=== PATIENT | male | born 2005 | race Two or more races ===

== ENCOUNTER 2025-01-09 03:27 | Emergency (ER) | payer MEDICAID, SELFPAY ==
[2025-01-09 03:28] VITALS: BMI 18.8
[2025-01-09 03:41] VITALS: BP 120/67; PULSE 66; RESP 17; TEMP 36.7; O2SAT 100
[2025-01-09 03:54] VITALS: BP 118/66; PULSE 63; RESP 15; O2SAT 98
--- NOTE | 2025-01-09 03:56 | EDNOTE_ITS ---
ED Male Genitalurinary RME/HPI General Chief complaint: Abdominal Pain Stated complaint: L FLANK PAIN Time Seen by Provider: 01/09/25 03:52 Arrival date/time: 01/09/25 03:27 RME / HPI RME / HPI Narrative: DR. PAULSON MAIN ED EVALUATION: 19 y/o male presents to ED c/o left flank and LLQ abdominal pain with vomiting x 9 hours. Patient states pain is constant, but severity increases and decreases. Denies history of kidney stones. No other concerns or complaints expressed at this time. Related Data Previous Rx's ?Medication ?Instructions ?Recorded ibuprofen 400 mg tablet 400 mg PO QID PRN pain #20 t abs 06/15/18 hydrocodone 10 mg-acetaminophen 1 tab PO Q6H PRN pain #30 tabs 01/09/25 325 mg tablet ibuprofen 600 mg tablet 600 mg PO Q6H PRN pain #30 t abs 01/09/25 tamsulosin 0.4 mg capsule (Flomax) 0.4 mg PO QDAY #7 c aps 01/09/25 Allergies Allergy/AdvReac Type Severity Reaction Status Date / Time No Known Allergies Allergy Verified 06/14/18 21:09 Review of Systems Review of Systems Systems Reviewed: All systems reviewed, normal except as documented Past Medical History Past Medical History RESPIRATORY: Positive Asthma ED Exam Narrative Physical exam: Generally patient is alert in mild distress secondary to pain heart regular rate and rhythm lungs clear to auscultation equal bilaterally abdomen soft bowel sounds present nondistended left lateral mid abdominal tenderness without rebound. Musculoskeletal examination of the patient mild costovertebral angle tenderness. Course Quality Measures none Orders Category Date Time Status Insert IV NOW Care 01/09/25 03:[address] abdomen pelvis wo con Stat Exams 01/09/25 03:56 Taken CBC Stat Lab 01/09/25 04:20 Completed CMP [Comprehensive Metabolic Panel] Stat Lab 01/09/25 04:20 Completed UA [Urinalysis] Stat Lab 01/09/25 04:39 Completed Ketorolac Inj [Toradol Inj] Med 01/09/25 03:56 Discontinued 30 mg IVP X1 ONE Ketorolac Inj [Toradol Inj] Med 01/09/25 03:56 Discontinued 30 mg IVP X1 ONE Morphine Inj Med 01/09/25 04:48 Discontinued 4 mg IVP X1 ONE Ondansetron Inj [Zofran Inj] Med 01/09/25 03:56 Discontinued 4 mg IVP X1 ONE Ondansetron Inj [Zofran Inj] Med 01/09/25 03:56 Discontinued 4 mg IVP X1 ONE Vital Signs Vital signs: Vital Signs Temperature 98.0 F 01/09/25 03:41 Pulse Rate 66 01/09/25 03:41 Respiratory Rate 17 01/09/25 03:41 Blood Pressure 120/67 01/09/25 03:41 Pulse Oximetry (%) 100 01/09/25 03:41 Oxygen Delivery Method Room Air 01/09/25 03:41 Urogenital - Male MDM Narrative MDM Narrative:: Scribe Attestation: I, Leesa Vasquez, am scribing for and in the presence of Dr. Paulson. Provider Notation: Although this document has been carefully reviewed, there may still be some phonetic and other typographical errors.? These errors are purely grammatical due to imperfections in the software program and should not be construed in any way to? compromise the substance of the patient's medical care during this visit. Clinically this patient has a kidney stone. There is microscopic hematuria. No elevation in white blood cell count in the urine and no bacteria seen. White count systemically is 13,000. CT scan done of the abdomen and pelvis without contrast is pending reading by the radiologist however it does show moderate left-sided hydronephrosis and approximately 3 mm left mid ureteral stone. Patient was pain-free after being given Toradol 30 mg IV and 4 mg of morphine IV as well as Zofran 4 mg IV. Patient will be discharged on Flomax and ibuprofen and [place] to be taken as prescribed. Follow-up with his doctor. Return to ER as needed or if condition worsens such as a fever develops. There is no evidence of infection at this time. Patient data External records reviewed:: [facility] previous records (No recent ED records available for review.) Clinical information provided by:: patient Social determinants that could affect healthcare access:: none Patient has the following chronic illnesses:: Asthma How is presenting disease/condition affected by chronic disease/condition?: uneffected by Evaluation data The following diagnostics were reviewed and interpreted by me:: lab results and radiology exam(s) Lab and/or radiology exams considered but not ordered:: None Interpretation Summary: RADIOLOGY Abdomen/Pelvis CT: Pending official radiology report. Medications / Prescriptions Medications or Prescriptions considered but not ordered:: None Medication administrations:: Medication Administration History Discontinued Medications Ketorolac Tromethamine (Ketorolac Inj 30 Mg/Ml Vial) 30 mg IVP X1 ONE Stop: 01/09/25 03:57 Last Admin: 01/09/25 04:03 Dose: Not Given Documented By: ANASTACIO Non-Admin Reason: Duplicate Medication on eMAR Ketorolac Tromethamine (Ketorolac Inj 30 Mg/Ml Vial) 30 mg IVP X1 ONE Stop: 01/09/25 03:57 Last Admin: 01/09/25 04:03 Dose: 30 mg Documented By: ANASTACIO Morphine Sulfate (Morphine Sulf Inj 10 Mg/Ml Vial) 4 mg IVP X1 ONE Stop: 01/09/25 04:49 Last Admin: 01/09/25 05:02 Dose: 4 mg Documented By: ANASTACIO Ondansetron HCl (Ondansetron Inj 2 Mg/Ml Inj 2 Ml) 4 mg IVP X1 ONE; Protocol Stop: 01/09/25 03:57 Last Admin: 01/09/25 03:59 Dose: Not Given Documented By: ANASTACIO Non-Admin Reason: Duplicate Medication on eMAR Ondansetron HCl (Ondansetron Inj 2 Mg/Ml Inj 2 Ml) 4 mg IVP X1 ONE; Protocol Stop: 01/09/25 03:57 Last Admin: 01/09/25 04:02 Dose: 4 mg Documented By: ANASTACIO See above Consultations Consultation(s) initiated? (list below): No Diagnosis Urogenital Male Differential Diagnosis: urinary tract infection, urethritis, acute retention of urine, inguinal hernia and other (Renal calculi) Most likely diagnosis given after review of the tests above:: None Admission Indicated Admission indicated?: not indicated Explain why admission is indicated or not indicated:: Patient does not meet admission criteria. Admission Request Was there a request for admission?: No Disposition Plan Disposition Plan: Discharge Discharge Attestation Discharge Attestation: The patient and all family members were given an opportunity to ask questions and understood the discharge instructions. Discharge instructions specifically effects, indications for sooner follow up or return to the emergency department, and the expected course of current diagnosis. Patient condition: Stable Discharge Plan Plan Patient Disposition: HOME (Self Care) Prescriptions/Referrals Prescriptions/Med Rec: New tamsulosin [Flomax] 0.4 mg capsule 0.4 mg PO QDAY Qty: 7 0RF ibuprofen 600 mg tablet 600 mg PO Q6H PRN (Reason: pain) Qty: 30 0RF hydrocodone-acetaminophen 10-325 mg tablet 1 tab PO Q6H MDD 4 PRN (Reason: pain) Qty: 30 0RF No Action ibuprofen 400 mg tablet 400 mg PO QID PRN (Reason: pain) Qty: 20 0RF Problem List Clinical Impression: Kidney stone Patient/Caregiver Discharge Instructions Print Language: Malawian Stand Alone Forms: [facility] Award Info., Patient Portal Info Letter
--- NOTE | 2025-01-09 03:56 | XR_ITS ---
Examination: CT abdomen and pelvis without contrast. Coronal 3-D reconstructions. Sagittal 2-D reconstructions. Date and time of exam:January 09, 2025, 0416 hours INDICATION: Onset left flank pain beginning 9 hours ago CTDI: vol (mGy): 4.13 DLP: (mGycm): . 222. Technique: Axial images of the abdomen have been obtained, 3 mm slice thickness Intravenous contrast material has not been administered. Low dose protocols were performed. One or more of the following dose reduction techniques were used; automated exposure control, adjustment of the mA and/or KV according to patient size, use of iterative reconstruction technique. Findings: No focal liver or splenic lesion No gallstones No pancreatic or adrenal mass Mild left hydronephrosis 4 mm proximal left ureteral calculus Aorta normal size. No bowel obstruction Normal appendix No bladder mass or bladder calculi Intact osseous structures mild disc narrowing L5-S1 IMPRESSION: Mild left hydronephrosis secondary to a 4 mm proximal left ureteral calculus
[2025-01-09] MEDS: ONDANSETRON INJ 2 MG/ML INJ 2 ML 4 MG IVP (04:02)
[2025-01-09] MEDS: KETOROLAC INJ 30 MG/ML VIAL IVP (04:03)
--- NOTE | 2025-01-09 04:03 | PC.NURSE ---
PT ARRIVED TO ED WITH [facility] FOR WORSEING LEFT SIDE FLANK PAIN. PAIN STARTED 01/08/2025 AROUND 1999 AND STARTED TO GET WORSE. PT STATES HE TOOK NAPROXEN WITH NO IMPROVEMENT
[2025-01-09 04:41] LABS: Basophils # (Auto) 0.1 Thou/mm3 (0.0-0.2); Basophils % (Auto) 0 % (0-2.5); Eosinophils # (Auto) 0.1 Thou/mm3 (0.0-0.5); Eosinophils % (Auto) 0 % (0-10); Hematocrit 45.5 % (41.0-53.0); Hemoglobin 16.1 g/dL (13.5-16.0); Immature Granulocytes Auto 0.05 Thou/mm3 (0.00-0.00); Lymphocytes # (Auto) 1.9 Thou/mm3 (1.0-4.8); Lymphocytes % (Auto) 13 % (10-50); Mean Corpuscular HGB Conc 35.4 g/dl (31.0-37.0); Mean Corpuscular Hemoglobin 31.2 pg (25.0-35.0); Mean Corpuscular Volume 88 fL (80-100); Monocytes # (Auto) 0.6 Thou/mm3 (0.0-0.8); Monocytes % (Auto) 5 % (0-12); Neutrophils # (Auto) 11.3 Thou/mm3 (1.8-7.7); Neutrophils % (Auto) 81 % (37-80); Nucleated Red Blood Cell # 0.00 Thou/mm3 (0.00-0.00); Nucleated Red Blood Cell % 0 /100 WBC (0); Platelet Count 362 Thou/mm3 (140-440); RDW Standard Deviation 38.8 fL (35.1-43.9); Red Blood Count 5.16 Miln/mm3 (4.50-5.90); White Blood Count 13.9 Thou/mm3 (4.5-11.0)
[2025-01-09 04:48] LABS: Collection Type, Urine Voided; Squamous Epithelial Cell,Urine 0 /hpf (0-5)
[2025-01-09 04:53] LABS: Bilirubin,Urine Negative (Negative); Blood,Urine 3+ (Negative); Clarity,Urine Turbid (Clear/Hazy); Color,Urine Yellow (Lt Yel-Yel); Glucose, Urine Negative (Negative); Ketones,Urine 1+ (Negative); Leukocyte Esterase,Urine Negative (Negative); Nitrite,Urine Negative (Negative); PH,Urine 6.5 (5.0-7.0); Protein,Urine 1+ (Neg - Trace); RBC,Urine 3489 /hpf (0-3); Specific Gravity,Urine 1.033 (1.001-1.035); Urobilinogen,Urine 2.0 mg/dL (0.0-1.0); WBC,Urine 14 /hpf (0-5)
[2025-01-09 04:59] LABS: Alanine Aminotransferase 12 U/L (10-49); Albumin, Serum 5.0 gm/dL (3.5-5.0); Albumin/Globulin Ratio 2.3 (1.2-2.2); Alkaline Phosphatase 108 U/L (46-116); Anion Gap 13 (7-16); Aspartate Amino Transferase 20 U/L (0-34); BUN/Creatinine Ratio 6 Ratio (12-20); Bilirubin,Total 0.8 mg/dL (0.3-1.2); Blood Urea Nitrogen 6 mg/dL (9-23); Calcium 10.0 mg/dL (8.3-10.6); Calcium (Corrected) 10.0 mg/dL (8.5-10.1); Carbon Dioxide 22.5 mMol/L (20.0-31.0); Chloride 108 mMol/L (98-107); Creatinine (Component) 1.0 mg/dL (0.6-1.3); Estimated Creatinine Clearance 90.7 mL/min (>60); Globulin 2.2 gm/dL (2.3-3.5); Glucose 99 mg/dL (74-106); Osmolality,Calculated 282 (275-295); Potassium 3.4 mMol/L (3.4-5.1); Sodium 143 mMol/L (136-145); Total Protein 7.2 gm/dL (5.7-8.2); eGFR > 60 See Note
[2025-01-09] MEDS: MORPHINE SULF INJ 10 MG/ML VIAL 4 MG IVP (05:02)
[2025-01-09 05:49] VITALS: BP 118/60; PULSE 68; RESP 15; O2SAT 99
--- NOTE | 2025-01-09 05:51 | PRELIM_ITS ---
CT abdomen and pelvis without intravenous contrast (axial sections with sagittal and coronal reformats) January 09, 2025 0416 hours Clinical History: Abdominal pain. Comparison: No prior study is available for comparison. Findings: There is a 4 mm calculus in the left proximal ureter (coronal image 49) with mild hydroureteronephrosis. The urinary bladder is unremarkable. The liver, gallbladder, spleen, pancreas and adrenals appear unremarkable on this noncontrast study. No evidence of bowel obstruction. The appendix is within normal limits (coronal images 51-65). No free fluid or free air is seen. The osseous structures are unremarkable. The lung bases are clear. Impression: A 4 mm calculus in the left proximal ureter with mild hydroureteronephrosis. Other findings as described above. Report Electronically Signed By: Allegra Vysa 01/09/2025 5:50:01 AM [EST]
== END 2025-01-09 05:50 | disposition home or self-care (01) ==
LOC: SERX 05:32
PROVIDERS: Emergency Provider Emergency Medicine; PCP Family Medicine
DX: N20.0 Calculus of kidney (principal); J45.909 Unspecified asthma, uncomplicated
CPT/HCPCS: 36415; 74176; 80053; 81001; 85025; 96374; 96375; 99283; J1885; J2270; J2405